=== PATIENT | female | born 1975 | race Caucasian/White ===

== ENCOUNTER 2017-07-21 18:34 | Emergency (ER) | payer OTHER ==
[~2017-07-21] VITALS: Ht 162.6 cm; Wt 68.0 kg
[2017-07-21 21:25] VITALS: BP 151/91
[2017-07-21] MEDS ORDERED: oxyCODONE ER 10 MG TAB PO ONE (21:45)
== END 2017-07-21 21:52 | disposition home or self-care (01) ==
LOC: ER 18:36
DX: G89.29 Other chronic pain (principal); M54.9 Dorsalgia, unspecified; F12.10 Cannabis abuse, uncomplicated; Z76.0 Encounter for issue of repeat prescription; Z88.8 Allergy status to other drugs, medicaments and biological substances